=== PATIENT | female | born 1955 | race Hispanic/Latino ===

== ENCOUNTER 2018-06-03 10:52 | Emergency (ER) | payer MEDICARE ==
--- NOTE | 2018-06-03 11:14 | Emergency Department Report ---
Stated Complaint: SEIZURES/FALLEN Time Seen by Provider: 06/03/18 11:09 - HPI History of Present Illness: cc numerous sz over the last 24 hours resulted in falls bruise l side of head friend states she is not acting right LAST SZ IN APRIL HR noted to be in 40's - not noted in the past no cp sob pmh sz metal plate in head- dont know why rx- reconcile bag of meds vimpat keppra SR xanax- in pts purse neuro Juliano denies etoh cig no street drugs MSE completed MSE screening note: Focused history and physical exam performed. Due to findings the following was ordered: ED Disposition for MSE Condition: Stable
[2018-06-03] MEDS ORDERED: NACL 0.9% 1000 ML 1,000 ML IV ONE (11:15)
[2018-06-03] MEDS ORDERED: KEPPRA 1,000 MG/NS 0.75% 100ML 1,000 MG/100 ML BAG IV ONE (11:34)
--- NOTE | 2018-06-03 11:47 | XRay Report ---
PORTABLE CHEST INDICATION: Shortness of breath. COMPARISON: None similar. FINDINGS: Portable, frontal chest radiograph demonstrates normal cardiomediastinal silhouette. Slight aortic knob calcifications. Clear, well-expanded lungs. Mild lower thoracic spine degenerative spurring. CONCLUSION: No acute chest process, as described. Thank you for the opportunity to participate in this patient's care.
[2018-06-03 11:51] LABS: Bilirubin,Urine NEG (Negative); Blood,Urine SM (Negative); Color,Urine Straw (Yellow); Protein,Urine <15 mg/dL mg/dL (Negative); Urobilinogen,Urine < 2.0 mg/dL (<2.0); WBC,Urine < 1.0 /HPF (0.0-6.0)
--- NOTE | 2018-06-03 11:51 | Emergency Department Report ---
HPI - General Chief Complaint: Seizure Time Seen by Provider: 06/03/18 11:09 - [facility] HPI: Room 6 The patient is a 8-year-old female presenting with a chief complaint of seizures. Family states over the past 8 days the patient has had a couple falls and 3 seizures. The patient states she been compliant with her Keppra and Vimpat. Patient states she has not discussed her symptoms with her neurologist Dr. Luis. Location: [facility] Duration: [See above] Quality: [See above] Severity: [See above] Modifying factors: [see above] Context: [see above] Mode of transportation: [not driving] ED Past Medical Hx - Past Medical History Hx Hypertension: Yes Hx Seizures: Yes - Surgical History Additional Surgical History: x 1, metal plate in head, tonsillectomy - Family History Family history: no significant - Social History Smoking Status: Current Every Day Smoker (1 pack per day) Substance Use Type: Marijuana ED Review of Systems ROS: Stated complaint: SEIZURES/FALLEN Other details as noted in HPI Constitutional: no symptoms reported Eyes: denies: eye pain ENT: denies: throat pain Respiratory: no symptoms reported Cardiovascular: denies: chest pain Endocrine: no symptoms reported Gastrointestinal: denies: abdominal pain Genitourinary: denies: dysuria Neurological: other (seizure, frequent falls) Physical Exam - Physical Exam Vital Signs: Vital Signs 06/03/18 11:08 Temperature 98.1 F Pulse Rate 47 L Respiratory 20 Rate Blood Pressure 128/70 O2 Sat by Pulse 92 Oximetry Physical Exam: GENERAL: The patient is well-developed well-nourished female lying on a stretcher not appearing to be in acute distress. [] HEENT: Normocephalic. Atraumatic. Extraocular motions are intact. Patient has moist mucous membranes. NECK: Supple. Trachea midline CHEST/LUNGS: Clear to auscultation. There is no respiratory distress noted. HEART/CARDIOVASCULAR: Regular. There is no tachycardia. There is no gallop rub or murmur. ABDOMEN: Abdomen is soft, nontender. Patient has normal bowel sounds. There is no abdominal distention. SKIN: There is no rash. There is no edema. There is no diaphoresis. NEURO: The patient is awake, alert, and oriented. The patient is cooperative. The patient has no focal neurologic deficits. The patient has normal speech. Cranial nerves II through XII grossly intact, no drift MUSCULOSKELETAL: There is no evidence of acute injury. ED Course Vital Signs 06/03/18 11:08 Temperature 98.1 F Pulse Rate 47 L Respiratory 20 Rate Blood Pressure 128/70 O2 Sat by Pulse 92 Oximetry ED Medical Decision Making - Lab Data Result diagrams: 06/03/18 11:24 06/03/18 11:24 Laboratory Tests 06/03/18 06/03/18 06/03/18 11:24 11:24 11:24 WBC 8.1 RBC 4.77 Hgb 14.9 H Hct 43.2 H MCV 91 MCH 31 MCHC 35 H RDW 14.0 Plt Count 476 H Lymph % (Auto) 17.7 [place] % (Auto) 5.6 Eos % (Auto) 0.5 Baso % (Auto) 0.8 Lymph # 1.4 [place] # 0.5 Eos # 0.0 Baso # 0.1 Seg Neutrophils % 75.4 H Seg Neutrophils # 6.1 Sodium 131 L Potassium 3.7 Chloride 88.3 L Carbon Dioxide 33 H Anion Gap 13 BUN 8 Creatinine 0.7 Estimated GFR > 60 BUN/Creatinine Ratio 11 Glucose 108 H Calcium 8.8 Total Bilirubin 0.30 AST 20 ALT 16 Alkaline Phosphatase 74 Total Creatine Kinase 105 Troponin T < 0.010 Total Protein 7.0 Albumin 3.6 L Albumin/Globulin Ratio 1.1 Urine Color Urine Turbidity Urine pH Ur Specific [place] Urine Protein Urine Glucose (UA) Urine Ketones Urine Blood Urine Nitrite Urine Bilirubin Urine Urobilinogen Ur Leukocyte Esterase Urine WBC (Auto) Urine RBC (Auto) U Epithel Cells (Auto) Urine Opiates Screen Urine Methadone Screen Ur Barbiturates Screen Ur Phencyclidine Scrn Ur Amphetamines Screen U Benzodiazepines Scrn Urine Cocaine Screen U Marijuana (THC) Screen Drugs of Abuse Note 06/03/18 06/03/18 11:42 11:42 WBC RBC Hgb Hct MCV MCH MCHC RDW Plt Count Lymph % (Auto) [place] % (Auto) Eos % (Auto) Baso % (Auto) Lymph # [place] # Eos # Baso # Seg Neutrophils % Seg Neutrophils # Sodium Potassium Chloride Carbon Dioxide Anion Gap BUN Creatinine Estimated GFR BUN/Creatinine Ratio Glucose Calcium Total Bilirubin AST ALT Alkaline Phosphatase Total Creatine Kinase Troponin T Total Protein Albumin Albumin/Globulin Ratio Urine Color Straw Urine Turbidity Clear Urine pH 7.0 Ur Specific [place] 1.003 Urine Protein <15 mg/dl Urine Glucose (UA) Neg Urine Ketones Neg Urine Blood Sm Urine Nitrite Neg Urine Bilirubin Neg Urine Urobilinogen < 2.0 Ur Leukocyte Esterase Neg Urine WBC (Auto) < 1.0 Urine RBC (Auto) 2.0 U Epithel Cells (Auto) < 1.0 Urine Opiates Screen Presumptive negative Urine Methadone Screen Presumptive negative Ur Barbiturates Screen Presumptive negative Ur Phencyclidine Scrn Presumptive negative Ur Amphetamines Screen Presumptive negative U Benzodiazepines Scrn Presumptive positive Urine Cocaine Screen Presumptive negative U Marijuana (THC) Screen Presumptive negative Drugs of Abuse Note Disclamer - EKG Data -: EKG Interpreted by Me EKG shows normal: sinus rhythm Rate: bradycardia (48 bpm) - Radiology Data Radiology results: report reviewed (chest x-ray, CT head), image reviewed (chest x-ray) interpreted by me: Chest x-ray-no focal infiltrates, no pneumothorax [facility] [address] [place] [address] XRay Report Signed Patient: PERCY LEE MR#: [id number] : 1955 Acct:[id number] Age/Sex: 62 / F ADM Date: 06/03/18 Loc: ED Attending Dr: Ordering Physician: MAHI FERNANDO Date of Service: 06/03/18 Procedure(s): XR chest 1V ap Accession Number(s): [id number] cc: MAHI FERNANDO Fluoro Time In Minutes: PORTABLE CHEST INDICATION: Shortness of breath. COMPARISON: None similar. FINDINGS: Portable, frontal chest radiograph demonstrates normal cardiomediastinal silhouette. Slight aortic knob calcifications. Clear, well-expanded lungs. Mild lower thoracic spine degenerative spurring. CONCLUSION: No acute chest process, as described. Thank you for the opportunity to participate in this patient's care. Transcribed By: RS Dictated By: LOTTIE KAMARA MD Electronically Authenticated By: LOTTIE KAMARA MD Signed Date/Time: 06/03/18 1147 DD/ 114 TD/TT: 06/03/18 114 - Differential Diagnosis seizures Critical care attestation.: If time is entered above; I have spent that time in minutes in the direct care of this critically ill patient, excluding procedure time. ED Disposition Clinical Impression: Seizure Disposition: DC-01 TO HOME OR SELFCARE Is pt being admited?: No Does the pt Need Aspirin: No Condition: Stable Instructions: Epilepsy (ED) Additional Instructions: Return to the emergency department immediately should you develop worsening symptoms, fever, inability to tolerate food or liquid or any other concerns. Referrals: PRIMARY CARE, [Referring] - 3-5 Days NEGIN MIMS MD [Staff Physician] - 3-5 Days (Dr. Mims is a neurologist. Please follow up with him to be established as a patient) Time of Disposition: 13:45
[2018-06-03 11:59] LABS: Basophils # (Auto) 0.1 K/mm3 (0.0-0.1); Basophils % (Auto) 0.8 % (0.0-1.8); Eosinophils % (Auto) 0.5 % (0.0-4.3); Hematocrit 43.2 % (30.3-42.9); Hemoglobin 14.9 gm/dl (10.1-14.3); Lymphocytes # (Auto) 1.4 K/mm3 (1.2-5.4); Lymphocytes % (Auto) 17.7 % (13.4-35.0); Mean Corpuscular HGB Conc 35 % (30-34); Mean Corpuscular Volume 91 fl (79-97); Monocytes # (Auto) 0.5 K/mm3 (0.0-0.8); Monocytes % (Auto) 5.6 % (0.0-7.3); Platelet Count 476 K/mm3 (140-440); Red Blood Count 4.77 M/mm3 (3.65-5.03)
[2018-06-03 12:08] LABS: Amphetamine Screen,Urine PRESUMPTIVE NEGATIVE; Cannabinoid Screen,Urine PRESUMPTIVE NEGATIVE; Cocaine Screen,Urine PRESUMPTIVE NEGATIVE; Methadone Screen,Urine PRESUMPTIVE NEGATIVE; Opiate Screen,Urine PRESUMPTIVE NEGATIVE
[2018-06-03 12:17] LABS: Alanine Aminotransferase 16 units/L (7-56); Albumin 3.6 g/dL (3.9-5); BUN/Creatinine Ratio 11; Blood Urea Nitrogen 8 mg/dL (7-17); Calcium 8.8 mg/dL (8.4-10.2); Hemolysis Index 22
[2018-06-03 12:23] LABS: Benzodiazepines Screen,Urine PRESUMPTIVE POSITIVE
[2018-06-03 13:06] VITALS: BP 137/71
--- NOTE | 2018-06-03 13:32 | Cat Scan Report ---
CT HEAD WITHOUT CONTRAST INDICATION: Seizure. COMPARISON: None similar. FINDINGS: Noncontrast head CT limited due to extensive streak artifact from frontal skull closure device. Imaged ventricles and sulci though age-appropriate and within normal limits without definite acute infarct, hemorrhage, mass effect or midline shift. No abnormal extra axial fluid collections. 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 Normal posterior fossa with preserved basilar cisterns. Left vertebral artery appears dominant. Normal imaged eye globes. Normal remainder skull and scalp. Clear imaged paranasal sinuses and left mastoid air cells except for 1 cm polyp or mucus retention cyst in the right maxillary sinus anteriorly on axial image 19. Right mastoid not well pneumatized. Some streak artifact from right earring noted. Mild left external auditory canal debris may be directly visualized. Leftward nasal septal deviation and an approximately 5-6 mm leftward septal spur. Maxilla appears edentulous. Small radiopaque mandibular dental filling noted. Few cervical spine degenerative changes also not excluded. CONCLUSION: 1. 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 2. Few other findings, as above. Thank you for the opportunity to participate in this patient's care.
== END 2018-06-03 14:25 | disposition home or self-care (01) ==
LOC: ED 10:52
DX: R56.9 Unspecified convulsions (principal); I10 Essential (primary) hypertension; F17.200 Nicotine dependence, unspecified, uncomplicated; F12.10 Cannabis abuse, uncomplicated; Z88.5 Allergy status to narcotic agent; Z88.0 Allergy status to penicillin
CPT/HCPCS: 36415; 70450; 71045; 80053; 80307; 81001; 82550; 84484; 85025; 93005; 93010; 96365; 99285; J1953; J7030

== ENCOUNTER 2019-05-31 19:41 | Observation (INO) | payer MEDICARE ==
--- NOTE | 2019-05-31 20:30 | Emergency Department Report ---
HPI - General Chief Complaint: Weakness Time Seen by Provider: 05/31/19 20:18 - HPI HPI: 63-year-old female presents to the emergency department with a complaint of some generalized weakness, shortness of breath, cough. Overall the symptoms have been going on for the past 1 to 2 months but have worsened over the past few weeks. Patient says that someone checked her blood pressure earlier today and it was low, and she felt that her skin was pale, so she was brought in to be seen. She denies any fever. No recent travel or sick contacts at home. No known exposure to anyone with Covid 19. She is a tobacco smoker. She has a past medical history of hypertension, seizures, and COPD, but is not oxygen dependent. ED Past Medical Hx - Past Medical History Previous Medical History?: Yes Hx Hypertension: Yes Hx Seizures: Yes Hx HIV: No Additional medical history: high cholestrol - Surgical History Past Surgical History?: Yes Additional Surgical History: x 1, metal plate in head, tonsillectomy - Social History Smoking Status: Current Every Day Smoker Substance Use Type: None - Medications Home Medications: Home Medications Medication Instructions Recorded Confirmed Last Taken Type Aspirin [Adult Aspirin] 81 mg PO DAILY #30 tab 05/18/19 06/01/19 Unknown Rx Lacosamide [Vimpat] 200 mg PO BID tablet 05/18/19 06/01/19 Unknown Rx Pravastatin [Pravachol] 40 mg PO QHS tablet 05/18/19 06/01/19 Unknown Rx Simvastatin 20 mg PO HS #30 tab 05/18/19 06/01/19 Unknown Rx Vimpat 200 mg PO BID #60 tab 05/18/19 06/01/19 Unknown Rx hydroCHLOROthiazide [HCTZ] 25 mg PO QDAY #30 tab 05/18/19 06/01/19 Unknown Rx levETIRAcetam [Keppra TAB] 750 mg PO BID #60 tablet 05/18/19 06/01/19 Unknown Rx levETIRAcetam [Keppra XR TAB] 750 mg PO BID #60 tab 05/18/19 06/01/19 Unknown Rx Albuterol Sulfate [Proventil Hfa] 6.7 gm IH QID PRN #1 hfa.aer.ad 06/02/19 Unknown Rx ED Review of Systems ROS: Stated complaint: WEAKNESS Other details as noted in HPI Comment: All other systems reviewed and negative Constitutional: weakness. denies: fever Eyes: denies: eye pain, vision change ENT: denies: ear pain, throat pain Respiratory: cough, shortness of breath Cardiovascular: denies: chest pain, palpitations Gastrointestinal: denies: abdominal pain, vomiting Genitourinary: denies: dysuria, discharge Musculoskeletal: denies: back pain, arthralgia Skin: other (pale skin). denies: pruritus Neurological: denies: headache, numbness Physical Exam - Physical Exam Vital Signs: Vital Signs 05/31/19 05/31/19 20:07 20:14 Temperature 98.2 F Pulse Rate 79 71 Respiratory 20 Rate Blood Pressure 117/67 O2 Sat by Pulse 66 L 95 Oximetry ED Course Vital Signs 05/31/19 05/31/19 20:07 20:14 Temperature 98.2 F Pulse Rate 79 71 Respiratory 20 Rate Blood Pressure 117/67 O2 Sat by Pulse 66 L 95 Oximetry ED Medical Decision Making - Lab Data Result diagrams: 06/02/19 07:14 06/02/19 07:14 - EKG Data -: EKG Interpreted by Me EKG shows normal: sinus rhythm, axis, intervals, QRS complexes (Q waves to the anterior leads), ST-T waves Rate: normal - EKG Data When compared to previous EKG there are: previous EKG unavailable Interpretation: other (Sinus rhythm, rate of 77 bpm, normal axis, Q waves to the anterior leads) - Radiology Data Radiology results: report reviewed, image reviewed interpreted by me: Chest x-ray shows hyperinflation of the lungs and flattening of the diaphragms. No obvious pneumonia, pleural effusions. CT ANGIOGRAPHY OF THE CHEST WITH INTRAVENOUS CONTRAST AND MULTIPLANAR MIP RECONSTRUCTIONS INDICATION / CLINICAL INFORMATION: Shortness of breath and elevated d-dimer. TECHNIQUE: Axial CT images were obtained after injection of 100 cc Omnipaque 350 IV contrast using CTA protocol. 3 plane MIP / 3D reconstructions were produced. All CT scans at this location are performed using CT dose reduction for ALARA by means of automated exposure control. COMPARISON: None available. FINDINGS: There is good opacification of the pulmonary arterial system bilaterally without intraluminal filling defect to suggest acute PTE. There are mild atherosclerotic calcifications involving the thoracic aorta without aneurysm or dissection. The visualized coronary vessels are unremarkable. There are mild changes of centrilobular emphysema. There is a minimal right pleural effusion. Interstitial lung markings are slightly increased in the right lower lung. There is reflux of contrast into the IVC and hepatic veins. The visualized upper abdomen is otherwise unremarkable. No acute osseous abnormality is identified. IMPRESSION: 1. No evidence of acute PTE. 2. Evidence of mild congestive heart failure superimposed on emphysema. - Medical Decision Making This patient presents to the emergency department through triage with complaint of some generalized weakness, shortness of breath, and was found to have hypoxia. She was 66% on room air and then was placed on supplemental oxygen. As soon as she came back an ABG was done but the patient was on supplemental oxygen at the time. This ABG showed hypercapnia. Shortly afterwards, we once again took off the supplemental oxygen and the patient went down to 77% on room air. She is currently on 4 L nasal cannula. Patient's labs show hypokalemia, elevated CRP and d-dimer levels. The chest x-ray did not show any pneumonia, pleural effusions or any other acute process and appears more consistent with a COPD/emphysema. The patient is due to have a CT angiography of the chest due to the elevated d-dimer level. If this shows pulmonary emboli, the patient will need anticoagulation. If there are signs of infiltrates or consolidations, and with the severe hypoxia without supplemental O2, I would have more of a concern for the possibility of Covid 19. The patient has been isolation and droplet precautions since being in the emergency department. The patient will be admitted to the hospital for further evaluation and treatment and was accepted for admission by the hospitalist, Dr. Dean. Critical Care Time: Yes Critical care time in (mins) excluding proc time.: 31 Critical care attestation.: If time is entered above; I have spent that time in minutes in the direct care of this critically ill patient, excluding procedure time. Due to the immediate potential for life-threatening deterioration due to underlying pulmonary condition, I spent 31 minutes of critical care time with the patient. Critical Care Time: 31 minutes ED Disposition Clinical Impression: Hypoxia, Hypercapnia, Hypokalemia, Tobacco use Dyspnea Qualifiers: Dyspnea type: shortness of breath Qualified Code(s): R06.02 - Shortness of breath; R06.00 - Dyspnea, unspecified; R06.01 - Orthopnea Disposition: OP ADMIT IP TO THIS HOSP Is pt being admited?: Yes Condition: Serious Time of Disposition: 01:34
--- NOTE | 2019-05-31 21:10 | XRay Report ---
CHEST 1 VIEW INDICATION / CLINICAL INFORMATION: SOB. COMPARISON: 06/03/2018 FINDINGS: SUPPORT DEVICES: None. HEART / MEDIASTINUM: No significant abnormality. LUNGS / PLEURA: No significant pulmonary or pleural abnormality. No pneumothorax. ADDITIONAL FINDINGS: No significant additional findings. IMPRESSION: 1. No acute findings. Signer Name: Mina Hansen MD Signed: 05/31/2019 9:06 PM Workstation Name: [id number]
[2019-05-31 21:12] LABS: ABG Base Excess 10.7 mmol/L (-2.0-3.0); ABG HCO3 38.3 mmol/L (20.0-26.0); ABG Methemoglobin 0.5 % (0.0-1.5); ABG Oxygen Saturation 95.7 % (95.0-99.0); ABG PCO2 63.2 mm Hg; ABG PH 7.401 pH Units (7.350-7.450); ABG PO2 80.9 mm Hg (80.0-90.0)
[2019-05-31 21:21] LABS: INR 1.11 (0.87-1.13)
[2019-05-31 21:22] LABS: Hematocrit 49.3 % (30.3-42.9); Hemoglobin 16.1 gm/dl (10.1-14.3); Mean Corpuscular HGB Conc 33 % (30-34); Mean Corpuscular Volume 92 fl (79-97); Partial Thromboplastin Time 29.4 Sec. (24.2-36.6); Platelet Count 486 K/mm3 (140-440); Red Blood Count 5.34 M/mm3 (3.65-5.03); Red Cell Distribution Width 13.7 % (13.2-15.2)
[2019-05-31 21:23] LABS: Basophils # (Auto) 0.1 K/mm3 (0.0-0.1); Eosinophils % (Auto) 0.5 % (0.0-4.3); Lymphocytes # (Auto) 1.4 K/mm3 (1.2-5.4); Lymphocytes % (Auto) 16.4 % (13.4-35.0); Monocytes # (Auto) 0.6 K/mm3 (0.0-0.8); Monocytes % (Auto) 7.1 % (0.0-7.3)
[2019-05-31 22:06] LABS: Alanine Aminotransferase 15 units/L (7-56); Albumin 3.6 g/dL (3.9-5); BUN/Creatinine Ratio 8; Blood Urea Nitrogen 5 mg/dL (7-17); Calcium 9.8 mg/dL (8.4-10.2); Hemolysis Index 5
[2019-05-31] MEDS ORDERED: POTASSIUM CHLORIDE ER 10 MEQ TAB PO ONE (22:10)
[2019-06-01] MEDS ORDERED: MAGNESIUM HYDROXIDE (MOM) ORAL LIQD UDC PO PRN (02:28)
[2019-06-01] MEDS ORDERED: ACETAMINOPHEN 325 MG TAB PO PRN (02:28)
[2019-06-01] MEDS ORDERED: ONDANSETRON 4 MG/2 ML INJ IV PRN (02:28)
--- NOTE | 2019-06-01 02:40 | History and Physical Report ---
History of Present Illness Date of examination: 06/01/19 Date of admission: 06/01/2019 Chief complaint: Cough Shortness of breath Generalized weakness History of present illness: 63-year-old female with known history of hypertension, seizure disorder, COPD presenting to the emergency room today complaining of shortness of breath and generalized body weakness which has been ongoing for about a month. She has had some occasional cough which is nonproductive. She denies any fever or chills, no nausea vomiting and no diarrhea. Patient denies any recent travel and no sick contacts. Evaluation in the emergency room reveals hypoxemia and hypercapnia. CT angiogr am was negative for PE. Patient has been placed on oxygen and nebulizing treatment with significant improvement. Past History Past Medical History: hypertension, hyperlipidemia, seizures, other Past Surgical History: tonsillectomy, Other (Metal plate placement in head) Social history: smoking (Current every day smoker) Medications and Allergies Allergies Allergy/AdvReac Type Severity Reaction Status Date / Time codeine AdvReac Nausea Verified 06/03/18 11:08 Penicillins AdvReac Nausea Verified 06/03/18 11:08 Home Medications Medication Instructions Recorded Confirmed Last Taken Type Aspirin [Adult Aspirin] 81 mg PO DAILY #30 tab 05/18/19 06/01/19 Unknown Rx Lacosamide [Vimpat] 200 mg PO BID tablet 05/18/19 06/01/19 Unknown Rx Pravastatin [Pravachol] 40 mg PO QHS tablet 05/18/19 06/01/19 Unknown Rx Simvastatin 20 mg PO HS #30 tab 05/18/19 06/01/19 Unknown Rx Vimpat 200 mg PO BID #60 tab 05/18/19 06/01/19 Unknown Rx hydroCHLOROthiazide [HCTZ] 25 mg PO QDAY #30 tab 05/18/19 06/01/19 Unknown Rx levETIRAcetam [Keppra TAB] 750 mg PO BID #60 tablet 05/18/19 06/01/19 Unknown Rx levETIRAcetam [Keppra XR TAB] 750 mg PO BID #60 tab 05/18/19 06/01/19 Unknown Rx Active Meds: Active Medications Acetaminophen (Tylenol) 650 mg PO Q4H PRN PRN Reason: Pain MILD(1-3)/Fever >100.5/ELISE Albuterol/Ipratropium (Duoneb *Not For Prn Use*) 1 ampul IH Q6HRT [facility] Levofloxacin/Dextrose (Levaquin 750mg/150ml) 750 mg in 150 mls @ 100 mls/hr IV Q24HR LINDSEY; Protocol Magnesium Hydroxide (Milk Of Magnesia) 30 ml PO Q4H PRN PRN Reason: Constipation Methylprednisolone Sodium Succinate (Solu-Medrol) 40 mg IV Q8HR [facility] Ondansetron HCl (Zofran) 4 mg IV Q8H PRN PRN Reason: Nausea And Vomiting Sodium Chloride (Sodium Chloride Flush Syringe 10 Ml) 10 ml IV BID LINDSEY Sodium Chloride (Sodium Chloride Flush Syringe 10 Ml) 10 ml IV PRN PRN PRN Reason: LINE FLUSH Review of Systems Constitutional: weakness, no fever, no chills Cardiovascular: no chest pain, no palpitations Respiratory: cough, shortness of breath Gastrointestinal: no abdominal pain, no nausea, no vomiting, no diarrhea Genitourinary Female: no flank pain, no dysuria, no hematuria Musculoskeletal: no neck pain, no low back pain Integumentary: no rash, no pruritis Neurological: no headaches, no change in mentation Exam - Constitutional Vitals: Temp Pulse Resp BP Pulse Ox 98.2 F 65 14 113/80 95 05/31/19 20:50 06/01/19 02:00 06/01/19 02:00 06/01/19 02:00 06/01/19 02:00 General appearance: Present: no acute distress, well-nourished - EENT Eyes: Present: PERRL, EOM intact ENT: hearing intact, clear oral mucosa, dentition normal - Neck Neck: Present: supple, normal ROM - Respiratory Respiratory effort: normal Respiratory: bilateral: diminished - Cardiovascular Rhythm: regular Heart Sounds: Present: S1 & S2 - Extremities Extremities: no ischemia, pulses intact, pulses symmetrical, No edema, Full ROM Peripheral Pulses: within normal limits - Abdominal General gastrointestinal: Present: soft, non-tender, non-distended - Integumentary Integumentary: Present: clear, warm, dry - Musculoskeletal Musculoskeletal: strength equal bilaterally - Psychiatric Psychiatric: appropriate mood/affect, intact judgment & insight, cooperative - Neurologic Neurologic: CNII-XII intact, moves all extremities Results - Labs CBC & Chem 7: 05/31/19 20:37 05/31/19 20:37 Labs: Abnormal lab results 05/31/19 05/31/19 05/31/19 Range/Units 20:37 20:37 20:37 RBC 5.34 H (3.65-5.03) M/mm3 Hgb 16.1 H (10.1-14.3) gm/dl Hct 49.3 H (30.3-42.9) % Plt Count 486 H (140-440) K/mm3 Seg Neutrophils % 75.0 H (40.0-70.0) % D-Dimer (0-234) ng/mlDDU ABG HCO3 (20.0-26.0) mmol/L ABG Base Excess (-2.0-3.0) mmol/L Oxyhemoglobin (95.0-99.0) % Potassium 3.2 L (3.6-5.0) mmol/L Chloride 90.9 L (98-107) mmol/L Carbon Dioxide 34 H (22-30) mmol/L BUN 5 L (7-17) mg/dL Creatinine 0.6 L (0.7-1.2) mg/dL Glucose 145 H (65-100) mg/dL Lactate Dehydrogenase (91-180) units/L C-Reactive Protein (0.00-1.30) mg/dL Albumin 3.6 L (3.9-5) g/dL TSH 4.410 H (0.270-4.200) mlU/mL 05/31/19 05/31/19 05/31/19 Range/Units 21:01 21:35 21:35 RBC (3.65-5.03) M/mm3 Hgb (10.1-14.3) gm/dl Hct (30.3-42.9) % Plt Count (140-440) K/mm3 Seg Neutrophils % (40.0-70.0) % D-Dimer 781.38 H (0-234) ng/mlDDU ABG HCO3 38.3 H (20.0-26.0) mmol/L ABG Base Excess 10.7 H (-2.0-3.0) mmol/L Oxyhemoglobin 93.5 L (95.0-99.0) % Potassium (3.6-5.0) mmol/L Chloride (98-107) mmol/L Carbon Dioxide (22-30) mmol/L BUN (7-17) mg/dL Creatinine (0.7-1.2) mg/dL Glucose (65-100) mg/dL Lactate Dehydrogenase (91-180) units/L C-Reactive Protein 3.20 H (0.00-1.30) mg/dL Albumin (3.9-5) g/dL TSH (0.270-4.200) mlU/mL 05/31/19 Range/Units 21:35 RBC (3.65-5.03) M/mm3 Hgb (10.1-14.3) gm/dl Hct (30.3-42.9) % Plt Count (140-440) K/mm3 Seg Neutrophils % (40.0-70.0) % D-Dimer (0-234) ng/mlDDU ABG HCO3 (20.0-26.0) mmol/L ABG Base Excess (-2.0-3.0) mmol/L Oxyhemoglobin (95.0-99.0) % Potassium (3.6-5.0) mmol/L Chloride (98-107) mmol/L Carbon Dioxide (22-30) mmol/L BUN (7-17) mg/dL Creatinine (0.7-1.2) mg/dL Glucose (65-100) mg/dL Lactate Dehydrogenase 275 H (91-180) units/L C-Reactive Protein (0.00-1.30) mg/dL Albumin (3.9-5) g/dL TSH (0.270-4.200) mlU/mL Assessment and Plan - Patient Problems (1) Dyspnea Current Visit: Yes Status: Acute Plan to address problem: Possibly secondary to COPD with underlying bronchitis. Patient has been placed on nebulizing treatments and IV steroids. (2) Hypercapnia Current Visit: Yes Status: Acute Plan to address problem: Possibly secondary to underlying COPD. Will monitor ABG. (3) Hypokalemia Current Visit: Yes Status: Acute Plan to address problem: Potassium will be repleted and will monitor chemistry. (4) Tobacco use Current Visit: Yes Status: Chronic Plan to address problem: Counseled on quitting tobacco use. Will offer nicotine patch as needed. (5) Hypertension Current Visit: No Status: Chronic Qualifiers: Hypertension type: essential hypertension Qualified Code(s): I10 - Essential (primary) hypertension Plan to address problem: We will continue routine home medications and monitor vital signs closely. (6) History of seizures Current Visit: No Status: Chronic Plan to address problem: We will continue on routine home medication and placed on seizure precautions. (7) DVT prophylaxis Current Visit: No Status: Acute Plan to address problem: Patient placed on subcutaneous heparin. (8) Full code status Current Visit: No Status: Acute
--- NOTE | 2019-06-01 02:59 | Cat Scan Report ---
CT ANGIOGRAPHY OF THE CHEST WITH INTRAVENOUS CONTRAST AND MULTIPLANAR MIP RECONSTRUCTIONS INDICATION / CLINICAL INFORMATION: Shortness of breath and elevated d-dimer. TECHNIQUE: Axial CT images were obtained after injection of 100 cc Omnipaque 350 IV contrast using CTA protocol. 3 plane MIP / 3D reconstructions were produced. All CT scans at this location are performed using CT dose reduction for ALARA by means of automated exposure control. COMPARISON: None available. FINDINGS: There is good opacification of the pulmonary arterial system bilaterally without intraluminal filling defect to suggest acute PTE. There are mild atherosclerotic calcifications involving the thoracic ao rta without aneurysm or dissection. The visualized coronary vessels are unremarkable. There are mild changes of centrilobular emphysema. There is a minimal right pleural effusion. Interst itial lung markings are slightly increased in the right lower lung. There is reflux of contrast into the IVC and hepatic veins. The visualized upper abdomen is otherwise unremarkable. No acute osseous abnormality is identified. IMPRESSION: 1. No evidence of acute PTE. 2. Evidence of mild congestive heart failure superimposed on emphysema. Signer Name: Cas Montiel MD Signed: 06/01/2019 2:54 AM Workstation Name: [id number]
[2019-06-01] MEDS: methylPREDNISolone Sod Succinate 40 MG/1 ML INJ IV SCH ×3 (05:58→22:55)
[2019-06-01] MEDS: hydroCHLOROthiazide 25 MG TAB PO SCH (09:29)
[2019-06-01] MEDS: LACOSAMIDE 100 MG TAB PO SCH ×2 (09:29→22:55)
[2019-06-01] MEDS: ASPIRIN EC 81 MG TAB PO SCH (09:29)
[2019-06-01] MEDS: levETIRAcetam 500 MG TAB PO SCH ×2 (09:29→22:55)
[2019-06-01] MEDS ORDERED: VIMPAT 200 MG PO SCH (10:00)
[2019-06-01] MEDS ORDERED: LEVETIRACETAM 750 MG PO SCH (10:00)
[2019-06-01] MEDS: IPRATROPIUM/ALBUTEROL SULFATE 3 ML AMPUL.NEB IH SCH ×3 (10:09→21:09)
--- NOTE | 2019-06-01 11:40 | Consultation ---
History of Present Illness Consult date: 06/01/19 Requesting physician: MANISHA ALDRIDGE Reason for consult: hypoxemia History of present illness: 63 y/o smoker, with seizure disorder and hypertension presents to the ED with 1- 2 months of cough and shortness of breath, no fever but all of the former have gotten worse in the last few weeks. Was admitted mid Month April and at that time expressed anxiety about COVID 19. Carries no diagnosis of COPD but does smoke. Also suffers from hypercapnea but has a normal pH so this is chronic and she is well compensated. CT scan of chest shows what could be some faint ground glass in the upper lobes. Per rads they see emphysema but I cannot clearly appreciate this. ABG on 3 liters showed a PaO2 of 80. There is a sat of 66% documented on arrival but seven minutes later it is 95. Denies any recent travel or sick contacts. Past History Past Medical History: hypertension, hyperlipidemia, seizures, other Past Surgical History: tonsillectomy, Other (Metal plate placement in head) Social history: smoking (Current every day smoker) Medications and Allergies Allergies Allergy/AdvReac Type Severity Reaction Status Date / Time codeine AdvReac Nausea Verified 06/03/18 11:08 Penicillins AdvReac Nausea Verified 06/03/18 11:08 Home Medications Medication Instructions Recorded Confirmed Last Taken Type Aspirin [Adult Aspirin] 81 mg PO DAILY #30 tab 05/18/19 06/01/19 Unknown Rx Lacosamide [Vimpat] 200 mg PO BID tablet 05/18/19 06/01/19 Unknown Rx Pravastatin [Pravachol] 40 mg PO QHS tablet 05/18/19 06/01/19 Unknown Rx Simvastatin 20 mg PO HS #30 tab 05/18/19 06/01/19 Unknown Rx Vimpat 200 mg PO BID #60 tab 05/18/19 06/01/19 Unknown Rx hydroCHLOROthiazide [HCTZ] 25 mg PO QDAY #30 tab 05/18/19 06/01/19 Unknown Rx levETIRAcetam [Keppra TAB] 750 mg PO BID #60 tablet 05/18/19 06/01/19 Unknown Rx levETIRAcetam [Keppra XR TAB] 750 mg PO BID #60 tab 05/18/19 06/01/19 Unknown Rx Active Meds: Active Medications Acetaminophen (Tylenol) 650 mg PO Q4H PRN PRN Reason: Pain MILD(1-3)/Fever >100.5/ELISE Albuterol/Ipratropium (Duoneb *Not For Prn Use*) 1 ampul IH Q6HRT [facility] Last Admin: 06/01/19 10:09 Dose: Not Given Documented by: Aspirin (Halfprin Ec) 81 mg PO DAILY [facility] Last Admin: 06/01/19 09:29 Dose: 81 mg Documented by: Heparin Sodium (Porcine) (Heparin) 5,000 unit SUB-Q Q8HR [facility] Hydrochlorothiazide (Hctz) 25 mg PO QDAY [facility] Last Admin: 06/01/19 09:29 Dose: 25 mg Documented by: Levofloxacin/Dextrose (Levaquin 750mg/150ml) 750 mg in 150 mls @ 100 mls/hr IV Q24HR [facility]; Protocol Last Admin: 06/01/19 09:29 Dose: 100 mls/hr Documented by: Lacosamide (Vimpat) 200 mg PO BID [facility] Last Admin: 06/01/19 09:29 Dose: 200 mg Documented by: Levetiracetam (Keppra) 750 mg PO BID [facility] Last Admin: 06/01/19 09:29 Dose: 750 mg Documented by: Magnesium Hydroxide (Milk Of Magnesia) 30 ml PO Q4H PRN PRN Reason: Constipation Methylprednisolone Sodium Succinate (Solu-Medrol) 40 mg IV Q8HR [facility] Last Admin: 06/01/19 05:58 Dose: 40 mg Documented by: Ondansetron HCl (Zofran) 4 mg IV Q8H PRN PRN Reason: Nausea And Vomiting Pravastatin Sodium (Pravachol) 40 mg PO QHS [facility] Sodium Chloride (Sodium Chloride Flush Syringe 10 Ml) 10 ml IV BID [facility] Last Admin: 06/01/19 09:30 Dose: 10 ml Documented by: Sodium Chloride (Sodium Chloride Flush Syringe 10 Ml) 10 ml IV PRN PRN PRN Reason: LINE FLUSH Review of Systems All systems: negative Physical Examination Vital signs: Vital Signs Temp Pulse Resp BP Pulse Ox 98.2 F 79 20 117/67 66 L 05/31/19 20:07 05/31/19 20:07 05/31/19 20:07 05/31/19 20:07 05/31/19 20:07 Results - Laboratory Findings CBC and BMP: 04/01/20 20:37 05/31/19 20:37 ABG ABG pH 7.401 pH Units (7.350-7.450) 05/31/19 21:01 ABG pCO2 63.2 mm Hg 05/31/19 21:01 ABG pO2 80.9 mm Hg (80.0-90.0) 05/31/19 21:01 ABG O2 Saturation 95.7 % (95.0-99.0) 05/31/19 21:01 PT/INR, D-dimer PT 14.4 Sec. (12.2-14.9) 05/31/19 20:37 INR 1.11 (0.87-1.13) 05/31/19 20:37 D-Dimer 781.38 ng/mlDDU (0-234) H 05/31/19 21:35 Abnormal lab findings: Abnormal Labs 05/31/19 05/31/19 05/31/19 20:37 20:37 20:37 RBC 5.34 H Hgb 16.1 H Hct 49.3 H Plt Count 486 H Seg Neutrophils % 75.0 H D-Dimer ABG HCO3 ABG Base Excess Oxyhemoglobin Potassium 3.2 L Chloride 90.9 L Carbon Dioxide 34 H BUN 5 L Creatinine 0.6 L Glucose 145 H Lactate Dehydrogenase C-Reactive Protein Albumin 3.6 L TSH 4.410 H 05/31/19 05/31/19 05/31/19 21:01 21:35 21:35 RBC Hgb Hct Plt Count Seg Neutrophils % D-Dimer 781.38 H ABG HCO3 38.3 H ABG Base Excess 10.7 H Oxyhemoglobin 93.5 L Potassium Chloride Carbon Dioxide BUN Creatinine Glucose Lactate Dehydrogenase C-Reactive Protein 3.20 H Albumin TSH 05/31/19 21:35 RBC Hgb Hct Plt Count Seg Neutrophils % D-Dimer ABG HCO3 ABG Base Excess Oxyhemoglobin Potassium Chloride Carbon Dioxide BUN Creatinine Glucose Lactate Dehydrogenase 275 H C-Reactive Protein Albumin TSH - Diagnostic Findings Chest x-ray: image reviewed Assessment and Plan 63 y/o female with chronic hypercapnea, compensated, admitted with dyspnea and hypoxemia. 1. Smoking cessation 2. Needs ambulatory pulse ox on room air 3. Would give a PRN rescue inhaler 4. Can follow up in office in 10-14 days. Will need gisela and repeat 2 view 5. spoke with [facility], would attempt to get patient out of hospital maxi. If she needs a few liters of oxygen, she does have some very scant changes of COPD see on CXR and given her chronic hypercapnea, definitely has some chronic underlying lung disease vs sleep apnea. Will screen for DWAINE in office as well.
[2019-06-01] MEDS: HEPARIN 5,000 UNIT/1 ML VIAL SUB-Q SCH ×2 (13:41→22:55)
--- NOTE | 2019-06-01 13:52 | Event Note ---
Date: 06/01/19 Patient seen and evaluated anxious appearing. Otherwise reviewed although she has smoking history she does not have a diagnosis of COPD. We will continue to ambulate her today and see how her oxygenation status is. Imaging studies have been reviewed anticipate discharge later today or in a.m.
[2019-06-01] MEDS ORDERED: NON-FORMULARY EACH (Simvastatin [Simvastatin] 20 MG) PO SCH (22:00)
[2019-06-01] MEDS ORDERED: PRAVASTATIN 40 MG TAB PO SCH (22:00)
[2019-06-02] MEDS: IPRATROPIUM/ALBUTEROL SULFATE 3 ML AMPUL.NEB IH SCH ×2 (03:00→08:51)
[2019-06-02] MEDS: HEPARIN 5,000 UNIT/1 ML VIAL SUB-Q SCH (05:39)
[2019-06-02] MEDS: methylPREDNISolone Sod Succinate 40 MG/1 ML INJ IV SCH (05:40)
[2019-06-02 07:37] LABS: Hematocrit 42.5 % (30.3-42.9); Hemoglobin 14.2 gm/dl (10.1-14.3); Mean Corpuscular HGB Conc 33 % (30-34); Mean Corpuscular Volume 91 fl (79-97); Platelet Count 396 K/mm3 (140-440); Red Blood Count 4.66 M/mm3 (3.65-5.03); Red Cell Distribution Width 13.8 % (13.2-15.2)
[2019-06-02 07:48] LABS: INR 0.96 (0.87-1.13)
[2019-06-02 07:49] LABS: Partial Thromboplastin Time 26.3 Sec. (24.2-36.6)
[2019-06-02 07:56] LABS: BUN/Creatinine Ratio 14; Blood Urea Nitrogen 7 mg/dL (7-17); Calcium 8.4 mg/dL (8.4-10.2); Hemolysis Index 6
[2019-06-02 07:59] VITALS: BP 143/77
--- NOTE | 2019-06-02 08:30 | Discharge Summary ---
Providers - Providers Date of Admission: 06/01/19 01:38 Attending physician: MANISHA ALDRIDGE MD 06/01/19 09:36 Consult to Physician [CONS] Routine Comment: Consulting Provider: AILYN JONES Physician Instructions: Reason For Exam: COPD EXACERBATION Primary care physician: [employer] Hospitalization Reason for admission: Respirtory failure Condition: Serious Hospital course: 63-year-old female with known history of hypertension, Seizure disorder, COPD presenting to the emergency room today complaining of shortness of breath and generalized body weakness which has been ongoing for about a month. She has had some occasional cough which is nonproductive. She denies any fever or chills, no nausea vomiting and no diarrhea. Patient denies any recent travel and no sick contacts. Evaluation in the emergency room reveals hypoxemia and hypercapnia. CT angiogram was negative for PE. Patient has been placed on oxygen and nebulizing treatment with significant improvement. Room air resting pulse oximetry: 95% Room air pulse oximetry during exertion: 91% Pulse oximetry on 3LPM per nasal cannula on exertion: 97% * Patient improved with nebs and also anxious control, * extensive counselling about Tobacco cessation discussed in detail. Hypercapnic respiratory failure- resolved Dyspnea Hypokalemia Tobacco use Hypertension History of seizures Disposition: DC-01 TO HOME OR SELFCARE Time spent for discharge: 35 mins Core Measure Documentation - Palliative Care Palliative Care/ Comfort Measures: Not Applicable - Core Measures Any of the following diagnoses?: none Exam - Constitutional Vitals: Temp Pulse Resp BP Pulse Ox 97.8 F 90 18 143/77 89 06/02/19 07:15 06/02/19 03:21 06/02/19 07:15 06/02/19 07:15 06/02/19 03:21 General appearance: Present: no acute distress - EENT Eyes: Present: PERRL, EOM intact ENT: hearing intact - Neck Neck: Present: supple, normal ROM - Respiratory Respiratory effort: normal Respiratory: bilateral: diminished - Cardiovascular Rhythm: regular Heart Sounds: Present: S1 & S2 - Extremities Extremities: no ischemia, pulses intact, pulses symmetrical, No edema, normal temperature, Full ROM Peripheral Pulses: within normal limits - Abdominal General gastrointestinal: Present: soft, non-tender, non-distended, normal bowel sounds - Integumentary Integumentary: Present: clear, warm, dry - Musculoskeletal Musculoskeletal: strength equal bilaterally - Psychiatric Psychiatric: appropriate mood/affect, intact judgment & insight, memory intact, cooperative - Neurologic Neurologic: CNII-XII intact, moves all extremities - Allied Health Allied health notes reviewed: nursing Plan Activity: advance as tolerated, fall precautions Diet: low fat Special Instructions: smoking cessation Follow up with: PRIMARY CARE, [Primary Care Provider] - 3-5 Days MALA GONZALEZ MD [Staff Physician] - 14 Days Forms: Discharge Signature Page Prescriptions: Albuterol Sulfate [Proventil Hfa] 6.7 gm IH QID PRN #1 [email or web address] PRN Reason: Shortness Of Breath
[2019-06-02 08:54] LABS: Band Neutrophils # (Manual) 0.1 K/mm3; Basophils % (Manual) 0 % (0.0-1.8); Eosinophils % (Manual) 0 % (0.0-4.3); Monocytes % (Manual) 0 % (0.0-7.3); Total Cells Counted 100
[2019-06-02 08:55] LABS: Platelet Estimate Consistent w Auto; RBC Morphology Normal
[2019-06-02] MEDS: hydroCHLOROthiazide 25 MG TAB PO SCH (10:03)
[2019-06-02] MEDS: levETIRAcetam 500 MG TAB PO SCH (10:03)
[2019-06-02] MEDS: ASPIRIN EC 81 MG TAB PO SCH (10:03)
[2019-06-02] MEDS: LACOSAMIDE 100 MG TAB PO SCH (10:04)
--- NOTE | 2019-06-02 11:16 | Progress Note ---
Assessment and Plan 63 y/o female with chronic hypercapnea, compensated, admitted with dyspnea and hypoxemia. 1. Smoking cessation 2. Needs ambulatory pulse ox on room air 3. Would give a PRN rescue inhaler at discharge. 4. Can follow up in office in 10-14 days. Will need gisela and repeat 2 view. I will set up visit Subjective Date of service: 06/02/19 Interval history: No acute events. Being discharged today. Objective Vital Signs - 12hr 06/01/19 06/02/19 06/02/19 23:52 01:35 03:21 Temperature 98.4 F 98.1 F Pulse Rate 91 H 90 Pulse Rate [ 91 H Right Radial] Respiratory 18 20 18 Rate Blood Pressure 128/50 Blood Pressure 120/66 [Left] O2 Sat by Pulse 98 98 89 Oximetry 06/02/19 07:15 Temperature 97.8 F Pulse Rate Pulse Rate [ Right Radial] Respiratory 18 Rate Blood Pressure 143/77 Blood Pressure [Left] O2 Sat by Pulse Oximetry CBC and BMP: 06/02/19 07:14 06/02/19 07:14 ABG, PT/INR, D-dimer: ABG ABG pH 7.401 pH Units (7.350-7.450) 05/31/19 21:01 ABG pCO2 63.2 mm Hg 05/31/19 21:01 ABG pO2 80.9 mm Hg (80.0-90.0) 05/31/19 21:01 ABG O2 Saturation 95.7 % (95.0-99.0) 05/31/19 21:01 PT/INR, D-dimer PT 12.9 Sec. (12.2-14.9) 06/02/19 07:14 INR 0.96 (0.87-1.13) 06/02/19 07:14 D-Dimer 781.38 ng/mlDDU (0-234) H 05/31/19 21:35 Abnormal lab findings: Abnormal Labs 05/31/19 05/31/19 05/31/19 20:37 20:37 20:37 RBC 5.34 H Hgb 16.1 H Hct 49.3 H Plt Count 486 H Seg Neutrophils % 75.0 H Seg Neuts % (Manual) Lymphocytes % (Manual) Seg Neutrophils # Man Lymphocytes # (Manual) D-Dimer ABG HCO3 ABG Base Excess Oxyhemoglobin Sodium Potassium 3.2 L Chloride 90.9 L Carbon Dioxide 34 H BUN 5 L Creatinine 0.6 L Glucose 145 H Lactate Dehydrogenase C-Reactive Protein Albumin 3.6 L TSH 4.410 H 05/31/19 05/31/19 05/31/19 21:01 21:35 21:35 RBC Hgb Hct Plt Count Seg Neutrophils % Seg Neuts % (Manual) Lymphocytes % (Manual) Seg Neutrophils # Man Lymphocytes # (Manual) D-Dimer 781.38 H ABG HCO3 38.3 H ABG Base Excess 10.7 H Oxyhemoglobin 93.5 L Sodium Potassium Chloride Carbon Dioxide BUN Creatinine Glucose Lactate Dehydrogenase C-Reactive Protein 3.20 H Albumin TSH 05/31/19 06/02/19 06/02/19 21:35 07:14 07:14 RBC Hgb Hct Plt Count Seg Neutrophils % Seg Neuts % (Manual) 98.0 H Lymphocytes % (Manual) 1.0 L Seg Neutrophils # Man 9.6 H Lymphocytes # (Manual) 0.1 L D-Dimer ABG HCO3 ABG Base Excess Oxyhemoglobin Sodium 133 L Potassium Chloride 89.2 L Carbon Dioxide 32 H BUN Creatinine 0.5 L Glucose 175 H Lactate Dehydrogenase 275 H C-Reactive Protein Albumin TSH
== END 2019-06-02 12:00 | disposition home or self-care (01) ==
LOC: ED 19:41 → INTOOBSV 06-01 01:38 → 3A 06-01 01:38 → 4A 06-01 12:54
PROVIDERS: ADMIT Internal Medicine Geriatric Medicine; ATTEND Internal Medicine
DX: R06.00 Dyspnea, unspecified (principal); R09.02 Hypoxemia; R06.89 Other abnormalities of breathing; E87.6 Hypokalemia; I10 Essential (primary) hypertension; J44.9 Chronic obstructive pulmonary disease, unspecified; R56.9 Unspecified convulsions; E78.5 Hyperlipidemia, unspecified; F17.200 Nicotine dependence, unspecified, uncomplicated; Z90.49 Acquired absence of other specified parts of digestive tract; Z79.82 Long term (current) use of aspirin; Z98.890 Other specified postprocedural states; Z98.891 History of uterine scar from previous surgery
CPT/HCPCS: 36415; 71045; 71275; 80048; 80053; 82728; 82803; 83615; 84145; 84443; 84484; 85007; 85025; 85379; 85610; 85730; 86140; 86850; 86900; 86901; 93005; 93010; 94640; 94760; 96365; 96372; 96375; 96376; 99291; A9270; G0378; J1644; J1956; J2920; Q9967